=== PATIENT | male | born 1985 | race Caucasian/White ===

== ENCOUNTER 2023-10-27 09:33 | Emergency (ER) | payer OTHER ==
[~2023-10-27] VITALS: Ht 177.8 cm; Wt 73.5 kg
[2023-10-27] MEDS ORDERED: ONDANSETRON 4 MG/2 ML VIAL ONE (10:12)
[2023-10-27] MEDS ORDERED: METOCLOPRAMIDE HCL 10 MG/2 ML VIAL ONE (10:13)
[2023-10-27] MEDS ORDERED: diphenhydrAMINE 50 MG/1 ML VIAL ONE (10:14)
[2023-10-27] MEDS: IV NORMAL SALINE 1000 ML BAG IV ONE (10:15)
[2023-10-27] MEDS: ONDANSETRON 4 MG/2 ML VIAL IV ONE (10:20)
[2023-10-27] MEDS: diphenhydrAMINE 50 MG/1 ML VIAL IV ONE (10:25)
[2023-10-27] MEDS: METOCLOPRAMIDE HCL 10 MG/2 ML VIAL IV ONE (10:27)
[2023-10-27 10:48] LABS: ALANINE AMINOTRANSFERASE 20 U/L (16-63); ALBUMIN 4.2 g/dL (3.4-5.0); ALKALINE PHOSPHATASE 75 U/L (50-136); ASPARTATE AMINOTRANSFERASE 11 U/L (15-37); BILIRUBIN,DIRECT 0.1 mg/dL (0.0-0.2); BILIRUBIN,TOTAL 0.8 mg/dL (0.2-1.0); CARBON DIOXIDE 25 mmol/L (21-32); CHLORIDE 105 mmol/L (98-107); GLUCOSE 129 mg/dL (74-106); POTASSIUM 3.8 mmol/L (3.5-5.1); SODIUM SERUM 143 mmol/L (136-145); TOTAL PROTEIN, SERUM 7.6 g/dL (6.4-8.2); UREA NITROGEN, BLOOD 16 mg/dL (7-18)
[2023-10-27 10:55] LABS: BASOPHILS % (AUTO) 0.5 % (0.0-2.0); DIFFERENTIAL COMMENT 0; EOSINOPHILS % (AUTO) 0.4 % (0.0-7.0); HEMATOCRIT 43.9 % (36.7-47.1); HEMOGLOBIN 15.4 g/dL (12.5-16.3); LYMPHOCYTES # (AUTO) 0.2 K/uL (0.8-4.8); LYMPHOCYTES % (AUTO) 2.3 % (20.5-51.5); MEAN CORPUSCULAR HEMOGLOBIN 29.8 uug (23.8-33.4); MEAN CORPUSCULAR HGB CONC 35 g/dL (32.5-36.3); MEAN CORPUSCULAR VOLUME 85.2 fL (73.0-96.2); MONOCYTES # (AUTO) 0.2 K/uL (0.1-1.30); MONOCYTES % (AUTO) 2.9 % (0.0-11.0); NEUTROPHILS # (AUTO) 7.6 K/uL (1.8-8.9); NEUTROPHILS % (AUTO) 93.9 % (38.5-71.5); PLATELET COUNT (AUTO) 192 K/uL (152-348); RED BLOOD CELL COUNT(AUTO) 5.16 MIL/uL (4.06-5.63); RED CELL DISTRIBUTION WIDTH 12.8 % (12.1-16.2); WHITE BLOOD COUNT (AUTO) 8.1 K/uL (3.6-10.2)
[2023-10-27] MEDS ORDERED: METO10TA3 PO (11:35)
[2023-10-27] MEDS ORDERED: ONDA4TAB11 PO (11:35)
[2023-10-27] MEDS ORDERED: METO-295 PO (12:07)
[2023-10-27 12:23] VITALS: O2SAT 98
[2023-10-27 12:54] VITALS: BP 104/66
== END 2023-10-27 13:00 | disposition home or self-care (01) ==
LOC: ER 09:37
DX: R11.2 Nausea with vomiting, unspecified (principal); Z98.890 Other specified postprocedural states; Z79.899 Other long term (current) drug therapy; Z88.1 Allergy status to other antibiotic agents
CPT/HCPCS: 99284; 96374; 96361; 96375; 80076; 80048; 85025; 85730; 84484; 36415; 93005; J1200; J2405; J7040; A4606; A4663; J2765

== ENCOUNTER 2024-08-31 18:50 | Emergency (ER) | payer OTHER ==
[~2024-08-31] VITALS: Ht 177.8 cm; Wt 72.6 kg
[~2024-08-31 18:50] MED LIST: METO-295 PO; ONDA4TAB11 PO
[2024-08-31] MEDS: IV NORMAL SALINE 1000 ML BAG IV ONE (19:30)
[2024-08-31] MEDS ORDERED: ONDANSETRON 4 MG/2 ML VIAL IV ONE (19:30)
[2024-08-31] MEDS ORDERED: METOCLOPRAMIDE HCL 10 MG/2 ML VIAL ONE (19:33)
[2024-08-31] MEDS ORDERED: FAMOTIDINE. 20 MG/2 ML VIAL IV ONE (19:34)
[2024-08-31] MEDS ORDERED: LORAZEPAM 2 MG/1 ML VIAL ONE (19:34)
[2024-08-31 19:39] LABS: BASOPHILS % (AUTO) 0.2 % (0.0-2.0); HEMATOCRIT 43.6 % (36.7-47.1); LYMPHOCYTES # (AUTO) 1.1 K/uL (0.8-4.8); MEAN CORPUSCULAR HEMOGLOBIN 29.4 uug (23.8-33.4); MEAN CORPUSCULAR HGB CONC 35 g/dL (32.5-36.3); MEAN CORPUSCULAR VOLUME 85.1 fL (73.0-96.2); MONOCYTES # (AUTO) 0.4 K/uL (0.1-1.30); MONOCYTES % (AUTO) 3.9 % (0.0-11.0); NEUTROPHILS # (AUTO) 9.7 K/uL (1.8-8.9); NEUTROPHILS % (AUTO) 85.9 % (38.5-71.5); PLATELET COUNT (AUTO) 218 K/uL (152-348); RED BLOOD CELL COUNT(AUTO) 5.12 MIL/uL (4.06-5.63); WHITE BLOOD COUNT (AUTO) 11.3 K/uL (3.6-10.2)
[2024-08-31 19:41] LABS: DIFFERENTIAL COMMENT 1
[2024-08-31] MEDS: LORAZEPAM 2 MG/1 ML VIAL IV ONE (19:43)
[2024-08-31] MEDS: METOCLOPRAMIDE HCL 10 MG/2 ML VIAL IV ONE (19:43)
[2024-08-31] MEDS: FAMOTIDINE. 20 MG/2 ML VIAL IV ONE (19:43)
[2024-08-31 19:53] LABS: ALBUMIN 4.9 g/dL (3.4-5.0); BILIRUBIN,DIRECT 0.2 mg/dL (0.0-0.2); BILIRUBIN,TOTAL 0.7 mg/dL (0.2-1.0); CALCIUM 9.4 mg/dL (8.5-10.1); CREATININE 1.1 mg/dL (0.6-1.3); POTASSIUM 3.6 mmol/L (3.5-5.1); TOTAL PROTEIN, SERUM 8.3 g/dL (6.4-8.2)
[2024-08-31 20:51] VITALS: BP 116/70; TEMP 97.9; O2SAT 97
[2024-09-01] MEDS ORDERED: PROC-11 PO (14:49)
== END 2024-08-31 20:51 | disposition home or self-care (01) ==
LOC: ER 18:50
DX: A05.9 Bacterial foodborne intoxication, unspecified (principal); R11.2 Nausea with vomiting, unspecified; R19.7 Diarrhea, unspecified
CPT/HCPCS: 99284; 96374; 96375; 96361; 80076; 80048; 83690; 85025; J3490; J2060; J2765; J7040; A4606; A4663

== ENCOUNTER 2024-09-01 08:44 | Emergency (ER) | payer MEDICAID, OTHER ==
[~2024-09-01] VITALS: Ht 177.8 cm; Wt 72.6 kg
[2024-09-01 08:57] VITALS: O2SAT 99
[2024-09-01] MEDS ORDERED: PROC-11 PO (14:49)
== END 2024-09-01 09:09 | disposition left against medical advice (07) ==
LOC: ER 08:44
DX: R53.1 Weakness (principal); R11.2 Nausea with vomiting, unspecified; Z53.21 Procedure and treatment not carried out due to patient leaving prior to being seen by health care provider
CPT/HCPCS: A4606; A4663

== ENCOUNTER 2024-09-01 12:02 | Emergency (ER) | payer MEDICAID, OTHER ==
[~2024-09-01] VITALS: Ht 177.8 cm; Wt 72.6 kg
[2024-09-01] MEDS: PROCHLORPERAZINE EDISYLATE 10 MG/2 ML VIAL IV ONE (13:30)
[2024-09-01 13:38] LABS: BASOPHILS % (AUTO) 0.2 % (0.0-2.0); EOSINOPHILS % (AUTO) 0.2 % (0.0-7.0); HEMATOCRIT 45.9 % (36.7-47.1); HEMOGLOBIN 15.9 g/dL (12.5-16.3); LYMPHOCYTES % (AUTO) 11.2 % (20.5-51.5); MEAN CORPUSCULAR HEMOGLOBIN 29.8 uug (23.8-33.4); MEAN CORPUSCULAR HGB CONC 35 g/dL (32.5-36.3); MEAN CORPUSCULAR VOLUME 86.4 fL (73.0-96.2); MONOCYTES # (AUTO) 0.4 K/uL (0.1-1.30); MONOCYTES % (AUTO) 4.3 % (0.0-11.0); NEUTROPHILS # (AUTO) 7.6 K/uL (1.8-8.9); NEUTROPHILS % (AUTO) 84.1 % (38.5-71.5); PLATELET COUNT (AUTO) 219 K/uL (152-348); RED BLOOD CELL COUNT(AUTO) 5.31 MIL/uL (4.06-5.63); RED CELL DISTRIBUTION WIDTH 13.2 % (12.1-16.2)
[2024-09-01 13:58] LABS: CALCIUM 9.6 mg/dL (8.5-10.1); CREATININE 1.1 mg/dL (0.6-1.3); POTASSIUM 3.9 mmol/L (3.5-5.1)
[2024-09-01 14:09] LABS: ALBUMIN 4.5 g/dL (3.4-5.0); BILIRUBIN,DIRECT 0.2 mg/dL (0.0-0.2); BILIRUBIN,TOTAL 0.9 mg/dL (0.2-1.0); TOTAL PROTEIN, SERUM 8.7 g/dL (6.4-8.2)
[2024-09-01] MEDS: IV NS 1000 ML 1,000 ML IV ONE (14:14)
[2024-09-01] MEDS ORDERED: PROCHLORPERAZINE EDISYLATE 10 MG/2 ML VIAL ONE (14:15)
[2024-09-01] MEDS ORDERED: PROC-11 PO (14:49)
[2024-09-01 15:17] VITALS: BP 149/85; TEMP 97.8; O2SAT 100
== END 2024-09-01 15:19 | disposition home or self-care (01) ==
LOC: ER 12:02
DX: R11.2 Nausea with vomiting, unspecified (principal); Z98.890 Other specified postprocedural states
CPT/HCPCS: 99283; 96374; 96361; 80076; 80048; 83036; 85025; J0780; J7040; A4606; A4663

== ENCOUNTER 2025-07-06 04:55 | Emergency (ER) | payer OTHER ==
[~2025-07-06] VITALS: Ht 177.8 cm; Wt 72.6 kg
[~2025-07-06 04:55] MED LIST changes: +ONDA-243 PO; -ONDA4TAB11 PO; +PROC-11 PO
[2025-07-06 04:59] VITALS: BP 115/76
[2025-07-06 06:21] VITALS: BP 110/81; O2SAT 99
== END 2025-07-06 05:40 | disposition home or self-care (01) ==
LOC: ER 05:06
DX: S60.222A Contusion of left hand, initial encounter (principal); W22.09XA Striking against other stationary object, initial encounter; Y93.89 Activity, other specified; Y92.89 Other specified places as the place of occurrence of the external cause; Y99.9 Unspecified external cause status
CPT/HCPCS: 73130; A4606; A4663